=== PATIENT | female | born 1955 | race Caucasian/White ===

== ENCOUNTER → 2016-12-20 | Outpatient (CLI) | payer BC ==
[~2016-12-20] MED LIST: MULTIVITAMIN1 EAC2 PO; SUPER B WITH V1 EACH PO
== END | disposition home or self-care (01) ==
LOC: CT 17:54
DX: S82.144A Nondisplaced bicondylar fracture of right tibia, initial encounter for closed fracture (principal); M17.11 Unilateral primary osteoarthritis, right knee; M25.061 Hemarthrosis, right knee
CPT/HCPCS: 73700

== ENCOUNTER 2017-11-08 15:42 | Inpatient (IN) | payer BC ==
[~2017-11-08] VITALS: Ht 170.2 cm; Wt 81.9 kg
[2017-11-08 16:48] LABS: HEMATOCRIT 47.9 % (36.0-46.0); HEMOGLOBIN 16.4 G/DL (11.9-15.5); MCH 32.2 PG (29.0-34.0); MCHC 34.2 G/DL (30.0-36.0); MCV 93.9 FL (83-99); PLATELET COUNT 193 K/uL (156-360); RBC DIS.WIDTH-CV 12.3 % (11.8-14.6); RBC DIS.WIDTH-SD 42.6 % (39-53); WHITE BLOOD COUNT 14.7 K/uL (4.1-10.2)
[2017-11-08 16:56] LABS: PTT 26.7 SEC (25-37)
[2017-11-08 16:58] LABS: ALBUMIN 4.2 g/dL (3.2-4.8); CHLORIDE 105 mEq/L (99-109); POTASSIUM 4.9 mEq/L (3.7-5.4); SODIUM 141 mEq/L (136-147)
[2017-11-08 17:01] LABS: GLUCOSE 104 mg/dL (70-99); TOTAL PROTEIN 7.2 g/dL (6.4-8.3)
[2017-11-08 17:03] LABS: TOTAL BILIRUBIN 1.5 mg/dL (0.0-1.0)
[2017-11-08 17:04] LABS: ALKALINE PHOSPHATASE 87 IU/L (3-129); CREATININE 1.2 mg/dL (0.6-1.3); GFR ESTIMATE (CALCULATED) 48 mL/min/
[2017-11-08 17:06] LABS: AST (GOT) 18 IU/L (2-34); UREA NITROGEN (BUN) 19 mg/dL (9-23)
[2017-11-08 17:07] LABS: ALT (GPT) 3 IU/L (3-49)
[2017-11-08 17:10] LABS: TROP-I INTERPRETATION NEGATIVE; TROPONIN-I < 0.01 ng/mL (0.0-0.30)
[2017-11-08] MEDS ORDERED: SINEMET 25-1001 EACH PO (17:13)
[2017-11-08] MEDS ORDERED: NEURONTIN300 MG PO (17:13)
[2017-11-08 20:14] VITALS: BP 142/74
[2017-11-09 00:07] VITALS: BP 113/55
[2017-11-09 04:31] VITALS: BP 131/68
[2017-11-09 05:32] LABS: BASOPHIL (%) 0.6 % (0-1); BASOPHIL COUNT 0.1 K/uL (0-0.1); EOSINOPHIL (%) 3.6 % (0-5); EOSINOPHIL COUNT 0.3 K/uL (0-0.3); HEMATOCRIT 42.8 % (36.0-46.0); IMMATURE GRANULOCYTE (%) 0.4 % (0.0-0.7); LYMPHOCYTE (%) 17.1 % (15-42); LYMPHOCYTE COUNT 1.6 K/uL (1.0-2.8); MCH 30.8 PG (29.0-34.0); MCHC 32.5 G/DL (30.0-36.0); MCV 94.9 FL (83-99); MONOCYTE (%) 5.8 % (3-12); MONOCYTE COUNT 0.5 K/uL (0-0.8); NEUTROPHIL (%) 72.5 % (45-76); NEUTROPHIL COUNT 6.8 K/uL (1.8-6.4); PLATELET COUNT 161 K/uL (156-360); RBC DIS.WIDTH-CV 12.3 % (11.8-14.6); RBC DIS.WIDTH-SD 43.1 % (39-53); RED BLOOD COUNT 4.51 M/uL (3.80-5.20); WHITE BLOOD COUNT 9.4 K/uL (4.1-10.2)
[2017-11-09 05:35] LABS: HEMOGLOBIN 13.9 G/DL (11.9-15.5)
[2017-11-09 06:14] LABS: ALBUMIN 3.3 G/DL (3.2-4.8); ALKALINE PHOSPHATASE 57 IU/L (3-129); AST (GOT) 11 IU/L (2-34); CHLORIDE 108 MEQ/L (99-109); CREATININE 1.1 MG/DL (0.6-1.3); GFR ESTIMATE (CALCULATED) 53 mL/min/; GLUCOSE 98 mg/dL (70-99); POTASSIUM 4.3 MEQ/L (3.7-5.4); SODIUM 142 MEQ/L (136-147); TOTAL BILIRUBIN 1.7 MG/DL (0.0-1.0); TOTAL PROTEIN 5.8 G/DL (6.4-8.3); UREA NITROGEN (BUN) 20 mg/dL (9-23)
[2017-11-09 06:23] LABS: ALT (GPT) < 3 IU/L (3-49)
[2017-11-09 08:00] VITALS: BP 142/74
[2017-11-09 11:00] VITALS: BP 148/80
[2017-11-09 17:00] VITALS: BP 174/83
[2017-11-09 20:45] VITALS: BP 170/86
[2017-11-10 00:56] VITALS: BP 163/80
[2017-11-10 06:01] VITALS: BP 140/73
[2017-11-10 06:34] LABS: HEMATOCRIT 42.3 % (36.0-46.0); HEMOGLOBIN 13.9 G/DL (11.9-15.5); MCH 31.2 PG (29.0-34.0); MCHC 32.9 G/DL (30.0-36.0); MCV 94.8 FL (83-99); PLATELET COUNT 127 K/uL (156-360); RBC DIS.WIDTH-CV 12.1 % (11.8-14.6); RBC DIS.WIDTH-SD 42.2 % (39-53); RED BLOOD COUNT 4.46 M/uL (3.80-5.20); WHITE BLOOD COUNT 8.1 K/uL (4.1-10.2)
[2017-11-10 07:01] LABS: CHLORIDE 108 MEQ/L (99-109); CREATININE 0.8 MG/DL (0.6-1.3); GFR ESTIMATE (CALCULATED) > 59 mL/min/; GLUCOSE 88 mg/dL (70-99); POTASSIUM 4.3 MEQ/L (3.7-5.4); SODIUM 140 MEQ/L (136-147); UREA NITROGEN (BUN) 17 mg/dL (9-23)
[2017-11-10 07:44] VITALS: BP 130/74
[2017-11-10 16:36] VITALS: BP 154/80
[2017-11-10 23:37] VITALS: BP 149/82
[2017-11-11 06:34] LABS: HEMATOCRIT 44.9 % (36.0-46.0); HEMOGLOBIN 14.6 G/DL (11.9-15.5); MCH 30.2 PG (29.0-34.0); MCHC 32.5 G/DL (30.0-36.0); PLATELET COUNT 155 K/uL (156-360); RBC DIS.WIDTH-CV 11.9 % (11.8-14.6); RBC DIS.WIDTH-SD 40.6 % (39-53); RED BLOOD COUNT 4.83 M/uL (3.80-5.20); WHITE BLOOD COUNT 8.4 K/uL (4.1-10.2)
[2017-11-11 06:54] LABS: CHLORIDE 104 MEQ/L (99-109); CREATININE 0.8 MG/DL (0.6-1.3); GFR ESTIMATE (CALCULATED) > 59 mL/min/; GLUCOSE 95 mg/dL (70-99); POTASSIUM 4.2 MEQ/L (3.7-5.4); SODIUM 140 MEQ/L (136-147); UREA NITROGEN (BUN) 15 mg/dL (9-23)
[2017-11-11 07:38] VITALS: BP 164/83
[2017-11-11 10:14] VITALS: BP 160/83
[2017-11-11 15:40] VITALS: BP 147/88
[2017-11-11 23:49] VITALS: BP 134/69
[2017-11-12 08:16] VITALS: BP 117/67
[2017-11-12 15:37] VITALS: BP 145/86
[2017-11-13 02:02] VITALS: BP 136/80
[2017-11-13 08:08] VITALS: BP 164/86
[2017-11-13] MEDS ORDERED: ENDOCET 5-3251 EACH PO (11:02)
[2017-11-13] MEDS ORDERED: ELIQUIS2.5 MG PO (13:31)
== END 2017-11-13 12:29 | disposition home or self-care (01) | DRG 481 ==
LOC: EME 15:42 → EDOF 18:27 → 3EAST 18:27 → ENRESERV 18:28 → 3EAST 19:57
PROVIDERS: Emergency Medicine; Internal Medicine; Orthopaedic Surgery
PROC: 0QS634Z Reposition Right Upper Femur with Internal Fixation Device, Percutaneous Approach (ICD-10-PCS; principal; 2017-11-09)
DX: S72.011A Unspecified intracapsular fracture of right femur, initial encounter for closed fracture (principal); I13.0 Hypertensive heart and chronic kidney disease with heart failure and stage 1 through stage 4 chronic kidney disease, or unspecified chronic kidney disease; G20 Parkinson's disease; I25.10 Atherosclerotic heart disease of native coronary artery without angina pectoris; E78.5 Hyperlipidemia, unspecified; I35.0 Nonrheumatic aortic (valve) stenosis; I48.91 Unspecified atrial fibrillation; E11.22 Type 2 diabetes mellitus with diabetic chronic kidney disease; R09.02 Hypoxemia; N18.9 Chronic kidney disease, unspecified; W18.09XA Striking against other object with subsequent fall, initial encounter; E11.40 Type 2 diabetes mellitus with diabetic neuropathy, unspecified; J98.11 Atelectasis; I50.9 Heart failure, unspecified
CPT/HCPCS: 71045; 73501; 73502; 73564; 76000; 80048; 80053; 84484; 85014; 85018; 85025; 85027; 85610; 85730; 86850; 86900; 86901; 93005; 94799; 97530 GP; 99281; 99285; C1713; J0131; J0690; J1170; J1650; J1885; J2250; J2405; J3010; J7030